=== PATIENT | female | born 1995 | race Caucasian/White ===

== ENCOUNTER → 2018-02-12 | Outpatient (REF) | payer OTHER ==
[~2018-02-12] MED LIST: ACE3 PO; CETI10CA8 PO; DEXM10CP6 PO; FLUT9.9S; LOOVRAL PO; ONDA4TAB PO; SERT25TA90 PO
== END ==
LOC: ZZSTITCHES 10:44
PROVIDERS: ATTEND Physician Assistant
DX: R07.9 Chest pain, unspecified (principal); R07.89 Other chest pain
CPT/HCPCS: 82040; 82247; 82310; 82374; 82435; 82565; 82947; 83690; 84075; 84132; 84155; 84295; 84450; 84460; 84520; 85379